=== PATIENT | female | born 1950 | race Caucasian/White ===

== ENCOUNTER 2016-12-02 06:55 | Day surgery (SDC) | payer MEDICARE, OTHER ==
--- NOTE | 2016-11-24 10:46 | HP ---
Chief Complaint - Chief Complaint Date of Service: 11/24/16 Chief Complaint: need my colonoscopy History of Present Illness: 66 year old female with a history of both parents having colon cancer, mother in her late 50s and father in his 70s. She has had previous polyps removed and last colonoscopy was in 2011, and revealed polyps. No changes in bowel habits, no blood in stools, no weight loss or night sweats. History of diverticulosis. - Patient's Past Medical History Patient History - Medical: Arthritis, Kidney stone, UTI'S, Other - thyroid mass Patient History - Cardiac/Respiratory: No pertinent hx, Hypertension, Valvular Heart Disease - rheumatic fever and MVP Patient History - Cancer: No Hx of Cancer Patient History - Surgical Procedures: Colonoscopy, Pneumothorax, Total Knee Replacement - bilateral, ENT - deviated septum and thyroidectomy Patient History - Other: None LMP (females 10-50): Menopausal - Family History Family History:: no untoward family reactions to anesthesia, no familial bleeding tendencies, no family history of clotting disorders - Social History Abuse History: No History of abuse Psych History: No pertinent hx Does anyone smoke in the home?: No Have you smoked in the past 12 months: No - Immunizations Immunizations Up to Date: Yes Hx Pneumococcal Vaccination: Yes History of Influenza Vaccine: Yes Review Of Systems (GEN) - Review of Systems Generalized/Overall Review: Absent: Weakness, Chills, Fever, Fatigue, Weight gain EENTM: Absent: Eye Pain, Tearing, Ear Pain, Nose Congestion, Throat Pain, Throat Swelling Respiratory: Absent: Cough, Shortness of Breath, Orthopnea, Wheezing Cardiac: Absent: Chest Pain, Edema Abdominal: Absent: Nausea, Vomiting, Abdominal Pain, Constipation, Diarrhea, Bright blood from rectum Genitourinary: Absent: Burning, Itching, Urgency, Frequency Musculoskeletal: Present: Muscle Pain Neurological: Absent: Headache, Anxiety, Seizure, Weakness Skin: Absent: Dryness, Lesions Endocrine: Present: No Symptoms Reported Allergies/Adverse Reactions: Allergies Allergy/AdvReac Type Severity Reaction Status Date / Time Sulfa (Sulfonamide Allergy Verified 11/24/16 10:42 Antibiotics) [Sulfa(Sulfonamide Antibiotics)] Home Medications: HOME MEDICATIONS Calcium Carbonate/Vitamin D3 [Calcium 600 + Vit D 400 Softgl] 1 cap PO DAILY [Last Taken Unknown] Cyclobenzaprine HCl [Flexeril] 10 mg PO PRN PRN 11/13/12 [Last Taken Unknown] Multivitamin [One Daily Multivitamin] 1 each PO DAILY 11/13/12 [Last Taken Unknown] Exam - Exam Vital Signs: BP 140/80 HR 80 T 98.8 RR 15 Ht 5'6 WT 145# Constitutional: Present: Alert, Oriented x3, Cooperative, Well developed, No distress ENT Exam: Present: hearing grossly normal Eye Exam: bilateral eye: normal inspection Breasts: Present: Exam deferred Respiratory: Present: chest non-tender, lungs clear, normal breath sounds, no respiratory distress Cardiovascular/Chest: Present: normal peripheral pulses, regular rate, rhythm, no chest tenderness, no edema, no gallop, no murmur Abdomen: Present: Normal bowel sounds, soft, nontender, nondistended /Rectal: Present: Exam deferred Extremity: Present: normal range of motion, non-tender, normal inspection Skin Exam: Present: normal color, warm/dry, no cyanosis Neurologic: Present: no motor/sensory deficits, alert, normal mood/affect Appearance: Present: appropriate appearance, appropriate insight Eye contact: Present: cooperative, good eye contact Thoughts: Present: normal thought pattern Assessment/Plan - Narrative Narrative: Family history of colon cancer and personal history of polyps. [facility] discussed for a colonoscopy with possible biopsy and/or polypectomy. She understands, agrees and wishes to proceed. Low likelihood of perforation, bleeding or anesthesia complications discussed. SUPREP discussed. - Assessment/Plan (1) Arthritis Problem: Chronic (2) Encounter for screening colonoscopy Problem: Acute (3) Family history of colon cancer Problem: Chronic (4) Colon polyps Problem: Chronic (5) Rheumatic fever Problem: Resolved (6) Pneumothorax Problem: Resolved
[~2016-12-02 06:55] MED LIST: RINGERS SOLUTION,LACTATED 1,000 ML IV PRN
[2016-12-02] MEDS ORDERED: RINGERS SOLUTION,LACTATED 1,000 ML IV ONE (07:35)
[2016-12-02] MEDS ORDERED: ONDANSETRON HCL/PF 2 MG/ML VIAL IV PRN (08:19)
[2016-12-02] MEDS ORDERED: RINGERS SOLUTION,LACTATED 1,000 ML IV PRN (08:19)
--- NOTE | 2016-12-02 08:23 | OR ---
Operative Report - Dictated Report Narrative: DATE OF PROCEDURE: 12/02/2016 PREOPERATIVE DIAGNOSIS: #1 Screening colonoscopy #2 family history colon cancer #3 history of colonic polyps POSTOPERATIVE DIAGNOSIS: #1 small polyp at 20 cm pending final pathology #2 scattered diverticulosis OPERATION: Colonoscopy with cold snare polypectomy SURGEON: Juan Salinas M.D., FACS ANESTHESIA : Leeroy Huizar NEWSWRITER sedation INDICATIONS: This is 66 year old female who presents for a screening colonoscopy. I have discussed the risks, benefits, indications, and contraindications for colonoscopy with the possibility of biopsy and/or polypectomy. She understands, agrees, and wishes to proceed. She has undergone a SUPREP and has tolerated it well. PROCEDURE: The patient was brought to the operating theater and placed into the left lateral decubitus position. The patient underwent sedation per anesthesia , and a digital rectal exam was performed. This was noted to be unremarkable. The patient was noted to have no internal or external hemorrhoids. The Olympus video colonoscope was introduced and advanced into the rectum. The rectum was normal in appearance. In the lower sigmoid, upper rectum, there was a small 4-5 mm polyp. Pictures taken. The scope was then advanced through the sigmoid, where scattered diverticular disease was noted. The scope was then advanced to the cecum using standard reduction techniques. The appendiceal orifice was noted. The ileocecal valve was noted. The prep appeared to be excellent with a [place] prep score of 9. The scope was withdrawn slowly as the ascending, transverse, descending, and sigmoid colon were examined in a circumferential fashion. At 20 cm, the polyp was observed, picture taken, and then it was removed with the cold snare. It was retrieved via the polyp trap. There was good hemostasis. The scope was brought back into the rectum where it was retroflexed in the lower rectum was examined. The air was decompressed, and the scope was then removed. Withdrawal time was 8 minutes. POSTOPERATIVE CONDITION: The patient was awakened and taken to the ambulatory surgery center in good condition. No complications were encountered. FINDINGS: Very small polyp at 20 cm, pending pathology, some scattered diverticulosis. Specimens: 1 EBL: 0 The findings were discussed with the patient. I recommend a follow-up colonoscopy in 5 years for screening purposes. We will call in 48 hours with the biopsy results.
[2016-12-02 09:19] VITALS: BP 138/87
== END 2016-12-02 06:56 | disposition home or self-care (01) ==
LOC: AMB 06:55
PROVIDERS: ATTEND Surgery
PROC: 0DBE8ZX Excision of Large Intestine, Via Natural or Artificial Opening Endoscopic, Diagnostic (ICD-10-PCS; principal; 2016-12-02 08:00)
DX: Z12.11 Encounter for screening for malignant neoplasm of colon (principal); K63.5 Polyp of colon; K57.30 Diverticulosis of large intestine without perforation or abscess without bleeding; I10 Essential (primary) hypertension; Z68.23 Body mass index [BMI] 23.0-23.9, adult